=== PATIENT | male | born 1980 | race Caucasian/White ===

== ENCOUNTER 2019-03-10 07:03 | Emergency (ER) | payer BC ==
[2019-03-10] MEDS ORDERED: Sodium Chloride 0.9% 1,000 ML IV SCH ×2 (07:45→10:00)
--- NOTE | 2019-03-10 07:45 | EDM.PDOC ---
ED HPI GENERAL MEDICAL PROBLEM - General Chief Complaint: Abdominal Pain Stated Complaint: ABD PAIN Time Seen by Provider: 03/10/19 07:45 Source of Information: Reports: Patient History Limitations: Reports: No Limitations - History of Present Illness INITIAL COMMENTS - FREE TEXT/NARRATIVE: Patient is a pleasant 39-year-old male who presents today with concern for acute onset abdominal pain which started at 5:30 this morning suddenly. He has never had pain like this before. He had gotten up and gone to work as usual, and had to call his to come pick him up. He was feeling well otherwise. Remote history of renal stones, but says it has been a long time. He denies nausea, vomiting, diarrhea or constipation. He denies any urinary symptoms such as difficulty with urination, increased frequency or urgency. He denies any fever, but has a few chills and sweats he thinks because of the pain. He denies any chest pain or shortness of breath. He has not had any previous abdominal surgeries. Otherwise healthy, takes BP medication. Significant alcohol use, 6 times per day, prefers hard liquor. L abdomen Pain Score (Numeric/FACES): 7 - Related Data Allergies Allergy/AdvReac Type Severity Reaction Status Date / Time No Known Allergies Allergy Verified 03/10/19 07:27 Home Meds: Home Meds Losartan Potassium [Cozaar] 50 mg PO DAILY 01/15/16 [History] Omeprazole Magnesium [Prilosec Otc] 10 mg PO DAILY 01/15/16 [History] Multivitamin [Multivitamins] 2 tab PO DAILY 01/28/16 [History] Tamsulosin [Tamsulosin 24 Hr] 0.4 mg PO QAM #7 cap.er 03/10/19 [Rx] Past Medical History Cardiovascular History: Reports: Angina, Other (See Below) Other Cardiovascular History: ELEVATED TROPONIN Gastrointestinal History: Reports: GERD Genitourinary History: Reports: Renal Calculus Other Genitourinary History: TESTICULAR TORSION Musculoskeletal History: Reports: Amputation, Other (See Below) Other Musculoskeletal History: NEUROMA OF AMPUTATION STUMP Social & Family History - Family History Family Medical History: Unobtainable - Tobacco Use Smoking Status *Q: Current Every Day Smoker - Alcohol Use Alcohol Use History: Yes Number of Drinks Per Day Comment: 6 hard liquor - Recreational Drug Use Recreational Drug Use: No - Living Situation & Occupation Living situation: Reports: Occupation: Employed ED ROS GENERAL - Review of Systems Review Of Systems: ROS reveals no pertinent complaints other than HPI. ED EXAM, GENERAL - Physical Exam Exam: See Below Free Text/Narrative:: Gen.: Alert, pleasant but painful and clutching his abdomen. Throat is without erythema, mucous members are moist. Neck is supple. Heart is regular rate and rhythm, no murmur heard. Lungs are clear throughout with no wheezes or crackles. Abdomen positive bowel sounds, soft diffuse right-sided tenderness with no rebound or guarding and difficult to reproduce. No significant costovertebral angle tenderness. pulses +2 in both the upper and lower extremities and there is no lower extremity edema. Skin is without lesions or rashes Course - Vital Signs Text/Narrative:: Initial impression: possible renal stone, pancreatitis, acute upper GI peptic ulcer gastritis. Labs ordered, IV fluid and morphine ordered. Last Recorded V/S: Last Vital Signs Temp 36.1 C 03/10/19 07:16 Pulse 65 03/10/19 07:16 Resp 18 03/10/19 07:16 BP 131/101 H 03/10/19 07:16 Pulse Ox 100 03/10/19 07:16 - Orders/Labs/Meds Orders: Active Orders 24 hr Category Date Time Status Sodium Chloride 0.9% [Normal Saline] 1,000 ml Med 03/10/19 07:45 Active IV ASDIRECTED Sodium Chloride 0.9% [Normal Saline] 1,000 ml Med 03/10/19 10:00 Active IV ASDIRECTED Sodium Chloride 0.9% [Saline Flush] Med 03/10/19 09:55 Active 10 ml FLUSH ASDIRECTED PRN Medication Orders Sodium Chloride (Normal Saline) 1,000 mls @ 999 mls/hr IV ASDIRECTED SAMIA Last Admin: 03/10/19 08:50 Dose: 999 mls/hr Sodium Chloride (Normal Saline) 1,000 mls @ 150 mls/hr IV ASDIRECTED SAMIA Last Admin: 03/10/19 09:56 Dose: 150 mls/hr Sodium Chloride (Saline Flush) 10 ml FLUSH ASDIRECTED PRN PRN Reason: Keep Vein Open Last Admin: 03/10/19 10:05 Dose: 10 ml Labs: Laboratory Tests 03/10/19 03/10/19 03/10/19 Range/Units 07:54 07:54 07:54 WBC 10.3 (4.5-12.0) X10-3/uL RBC 4.46 (4.30-5.75) x10(6)uL Hgb 15.2 (13.5-17.8) g/dL Hct 43.0 (30.0-51.3) % MCV 96.3 H (80-96) fL MCH 34.0 H (27.7-33.6) pg MCHC 35.3 (32.2-35.4) g/dL RDW 11.7 (11.5-15.5) % Plt Count 234 (125-369) X10(3)uL MPV 7.9 (7.4-10.4) fL Add Manual Diff Yes Neutrophils % (Manual) 87 H (46-82) % Lymphocytes % (Manual) 9 L (13-37) % Monocytes % (Manual) 4 (4-12) % PT 10.4 (8.7-11.1) INR 1.07 (0.89-1.13) Sodium 142 (135-145) mmol/L Potassium 3.8 (3.5-5.3) mmol/L Chloride 105 (100-110) mmol/L Carbon Dioxide 30 (21-32) mmol/L BUN 10 (7-18) mg/dL Creatinine 0.9 (0.70-1.30) mg/dL Est Cr Clr Drug Dosing 101.50 mL/min Estimated GFR (MDRD) > 60 (>60) BUN/Creatinine Ratio 11.1 (9-20) Glucose 108 (80-116) mg/dL Lactic Acid (0.4-2.2) mmol/L Calcium 8.5 L (8.6-10.2) mg/dL Total Bilirubin 0.4 (0.1-1.3) mg/dL AST 29 H (5-25) IU/L ALT 37 H (12-36) U/L Alkaline Phosphatase 111 (56-112) IU/L Total Protein 6.6 (6.0-8.0) g/dL Albumin 3.5 (3.5-5.2) g/dL Globulin 3.1 g/dL Albumin/Globulin Ratio 1.1 Amylase 39 (25-115) U/L Urine Color (YELLOW) Urine Appearance (CLEAR) Urine pH (5.0-6.5) Ur Specific [place] (1.010-1.025) Urine Protein (NEGATIVE) mg/dL Urine Glucose (UA) (NORMAL) mg/dL Urine Ketones (NEGATIVE) mg/dL Urine Occult Blood (NEGATIVE) Urine Nitrite (NEGATIVE) Urine Bilirubin (NEGATIVE) Urine Urobilinogen (NEGATIVE) mg/dL Ur Leukocyte Esterase (NEGATIVE) Urine RBC (0-5) Urine WBC (0-5) Ur Squamous Epith Cells (NS,R,O) Urine Bacteria (NS) Urine Mucus (NS) 03/10/19 03/10/19 Range/Units 07:54 09:45 WBC (4.5-12.0) X10-3/uL RBC (4.30-5.75) x10(6)uL Hgb (13.5-17.8) g/dL Hct (30.0-51.3) % MCV (80-96) fL MCH (27.7-33.6) pg MCHC (32.2-35.4) g/dL RDW (11.5-15.5) % Plt Count (125-369) X10(3)uL MPV (7.4-10.4) fL Add Manual Diff Neutrophils % (Manual) (46-82) % Lymphocytes % (Manual) (13-37) % Monocytes % (Manual) (4-12) % PT (8.7-11.1) INR (0.89-1.13) Sodium (135-145) mmol/L Potassium (3.5-5.3) mmol/L Chloride (100-110) mmol/L Carbon Dioxide (21-32) mmol/L BUN (7-18) mg/dL Creatinine (0.70-1.30) mg/dL Est Cr Clr Drug Dosing mL/min Estimated GFR (MDRD) (>60) BUN/Creatinine Ratio (9-20) Glucose (80-116) mg/dL Lactic Acid 1.4 (0.4-2.2) mmol/L Calcium (8.6-10.2) mg/dL Total Bilirubin (0.1-1.3) mg/dL AST (5-25) IU/L ALT (12-36) U/L Alkaline Phosphatase (56-112) IU/L Total Protein (6.0-8.0) g/dL Albumin (3.5-5.2) g/dL Globulin g/dL Albumin/Globulin Ratio Amylase (25-115) U/L Urine Color Yellow (YELLOW) Urine Appearance Clear (CLEAR) Urine pH 7.0 H (5.0-6.5) Ur Specific [place] 1.015 (1.010-1.025) Urine Protein Negative (NEGATIVE) mg/dL Urine Glucose (UA) Normal (NORMAL) mg/dL Urine Ketones Negative (NEGATIVE) mg/dL Urine Occult Blood Moderate H (NEGATIVE) Urine Nitrite Negative (NEGATIVE) Urine Bilirubin Negative (NEGATIVE) Urine Urobilinogen Normal (NEGATIVE) mg/dL Ur Leukocyte Esterase Negative (NEGATIVE) Urine RBC 10-20 H (0-5) Urine WBC 0-5 (0-5) Ur Squamous Epith Cells Few H (NS,R,O) Urine Bacteria Few H (NS) Urine Mucus Moderate H (NS) Meds: Medications Generic Name Dose Route Start Last Admin Trade Name Freq PRN Reason Stop Dose Admin Sodium Chloride 1,000 mls @ 999 mls/hr 03/10/19 07:45 03/10/19 08:50 Normal Saline IV 999 mls/hr ASDIRECTED SAMIA Administration Sodium Chloride 1,000 mls @ 150 mls/hr 03/10/19 10:00 03/10/19 09:56 Normal Saline IV 150 mls/hr ASDIRECTED SAMIA Administration Sodium Chloride 10 ml 03/10/19 09:55 03/10/19 10:05 Saline Flush FLUSH 10 ml ASDIRECTED PRN Administration Keep Vein Open Discontinued Medications Generic Name Dose Route Start Last Admin Trade Name Freq PRN Reason Stop Dose Admin Al Hydroxide/Mg Hydroxide 15 0 ml 03/10/19 08:25 03/10/19 08:40 ml/ Lidocaine HCl 15 ml PO 03/10/19 08:26 15 ml ONETIME ONE Administration Ketorolac Tromethamine 30 mg 03/10/19 09:56 03/10/19 10:03 Toradol IVPUSH 03/10/19 09:57 30 mg ONETIME ONE Administration Morphine Sulfate 2 mg 03/10/19 07:56 03/10/19 08:50 Morphine IVPUSH 03/10/19 07:57 2 mg ONETIME ONE Administration Ondansetron HCl 4 mg 03/10/19 07:56 03/10/19 08:47 Zofran IVPUSH 03/10/19 07:57 4 mg ONETIME ONE Administration Tamsulosin HCl 0.4 mg 03/10/19 09:58 03/10/19 10:02 Flomax PO 03/10/19 09:59 0.4 mg ONETIME ONE Administration - Re-Assessments/Exams Free Text/Narrative Re-Assessment/Exam: 03/10/19 labs returned with slight bump in LFTs, otherwise normal CBC and electrolytes and renal function. Urine still pending. Patient slightly improved after morphine, pain is now coming in spasms. Free Text/Narrative Re-Assessment/Exam: 03/10/19 9:45 Blood noted in urine, will CT to look for renal stone. Toradol ordered and Flomax. Patient appears more comfortable than prior, but is still having pain coming in spasms. Free Text/Narrative Re-Assessment/Exam: 03/10/19 10:45 CT results called by radiology, shows a small renal calculi currently in the urinary bladder. There is no other evidence of obstruction, hydronephrosis or additional calculi. Updated the patient and his with these results. We'll plan to discharge home, short prescription of Flomax, warned about pain with passing out of urethra. Also discussed decreasing alcohol intake and smoking cessation. All questions are answered, they are in agreement with this plan Departure - Departure Time of Disposition: 11:16 Disposition: Home, Self-Care 01 Condition: Good Clinical Impression: Nephrolithiasis - Discharge Information *PRESCRIPTION DRUG MONITORING PROGRAM REVIEWED*: Not Applicable *COPY OF PRESCRIPTION DRUG MONITORING REPORT IN PATIENT KATELYN: Not Applicable Prescriptions: Tamsulosin [Tamsulosin 24 Hr] 0.4 mg PO QAM #7 cap.er Instructions: Kidney Stones Forms: ED Department Discharge Additional Instructions: Prescription given for Flomax in case you have not passed the stone by tomorrow morning, take once per day. If can catch the stone and a strainer, can be analyzed to determine what kind it is. Given that this has only happened once every few years it may or may not be cost effective for you. Recommend decrease alcohol use, also consider smoking cessation for general health Follow-up with PCP as scheduled - My Orders Last 24 Hours: My Active Orders 03/10/19 07:45 Sodium Chloride 0.9% [Normal Saline] 1,000 ml IV ASDIRECTED 03/10/19 09:55 Sodium Chloride 0.9% [Saline Flush] 10 ml FLUSH ASDIRECTED PRN 03/10/19 10:00 Sodium Chloride 0.9% [Normal Saline] 1,000 ml IV ASDIRECTED - Assessment/Plan Last 24 Hours: My Active Orders 03/10/19 07:45 Sodium Chloride 0.9% [Normal Saline] 1,000 ml IV ASDIRECTED 03/10/19 09:55 Sodium Chloride 0.9% [Saline Flush] 10 ml FLUSH ASDIRECTED PRN 03/10/19 10:00 Sodium Chloride 0.9% [Normal Saline] 1,000 ml IV ASDIRECTED
[2019-03-10] MEDS ORDERED: Ondansetron 4 MG/2 ML SDV IVPUSH ONE (07:56)
[2019-03-10] MEDS ORDERED: Morphine 4 MG/ML Syringe IVPUSH ONE (07:56)
[2019-03-10] MEDS ORDERED: Alum Hydroxide/Mag Hydroxide 15 ML, Lidocaine 2% 15 ML PO ONE ×2 (08:25)
[2019-03-10] MEDS ORDERED: Sodium Chloride 0.9% 10 ML Syringe FLUSH PRN (09:55)
[2019-03-10] MEDS ORDERED: Ketorolac 30 MG/ML SDV IVPUSH ONE (09:56)
[2019-03-10] MEDS ORDERED: Tamsulosin 0.4 MG Cap.ER PO ONE (09:58)
--- NOTE | 2019-03-10 11:07 | CR ---
INDICATION: Question kidney stone with left flank pain. CT ABDOMEN AND PELVIS WITHOUT CONTRAST: Spiral 2.5 mm axial sections were obtained through the abdomen and pelvis without contrast, with sagittal and coronal reconstructions, 03/10/19, and compared with 02/02/13. Total exam DLP = 391.13 mGy-cm. The lower lung steven and pleural spaces visualized appeared normal. The heart is normal in size. No pericardial effusion was seen. Calcifications are noted in the otherwise normal adrenal glands. No evidence of renal calcinosis is noted. No evidence of ureteral calcinosis is seen - no definite obstructive uropathy is identified. There is noted a tiny calcific density at the posterior wall of the urinary bladder, which was not present previously, raising question of a recently passed tiny calculus. No residual obstructive uropathy is seen. The urinary bladder appeared to be grossly normal. The prostate is slightly enlarged, measuring 47 x 43 x 32 mm. The appendix appears normal, visualized on axial images #141 through #153. No free air or bowel obstruction was suggested. No retroperitoneal masses were identified. No hernia was identified. The liver, gallbladder, spleen, and pancreas appeared to be within normal limits. IMPRESSION: 1. Tiny calculus suggested in the urinary bladder, which was not present on 01/08 and could represent a recently passed tiny calculus. 2. No significant residual obstructive uropathy identified. No renal calcinosis seen. Report was called to Dr. Ware at 1048 hours on 03/10/19. [facility]
[2019-03-10 11:54] VITALS: BP 134/98; PULSE 73
== END 2019-03-10 11:41 | disposition home or self-care (01) ==
LOC: FB.ED 07:03
DX: N20.0 Calculus of kidney (principal); K21.9 Gastro-esophageal reflux disease without esophagitis; F17.200 Nicotine dependence, unspecified, uncomplicated; Z79.899 Other long term (current) drug therapy
CPT/HCPCS: 36415; 74176; 80053; 81001; 82150; 83605; 85025; 85610; 96361; 96374; 96375; 99284; A9270; J1885; J2270; J2405; J7030